=== PATIENT | female | born 1990 | race Caucasian/White ===

== ENCOUNTER 2018-06-13 15:45 | Emergency (ER) | payer BC ==
[~2018-06-13] VITALS: Ht 154.9 cm; Wt 90.7 kg
[~2018-06-13 15:45] MED LIST: AMOXICILLIN875 MG PO; ANAPROX DS550 MG PO; BACTRIM DS TAB1 EACH PO; CEPHALEXIN 500500 M3 PO; CILOXAN5 ML OP; CIPROFLOXACIN500 M1 PO; DEPO-PROVERA; HYDROCODON-ACE1 EAC7 PO; IBUPROFEN 600600 M1 PO; IBUPROFEN 800800 M1 PO; LORTABELXR PO; MAXITROL EYE DRO5 ML OP; MIDOL220 MG PO; MUCINEX600 MG PO; NAPROXEN 500MG500 MG PO; NOHOMEMEDICATIONS; PHENERGAN 25 MG25 M1 PO; PRENATAL PO; TRAMADOL 50 MG50 MG PO; ZOFRAN ODT4 M1 PO
[2018-06-13 15:51] VITALS: BP 122/79
[2018-06-13] MEDS ORDERED: BACTRIM DS TAB1 EACH PO (16:25)
[2018-06-13] MEDS ORDERED: NORCO 5-325 TA1 EAC1 PO (16:25)
== END 2018-06-13 16:35 | disposition home or self-care (01) ==
LOC: M.ERS 15:45
DX: N76.4 Abscess of vulva (principal); Z87.442 Personal history of urinary calculi; Z98.890 Other specified postprocedural states; Z86.14 Personal history of Methicillin resistant Staphylococcus aureus infection

== ENCOUNTER 2018-07-09 20:05 | Emergency (ER) | payer BC ==
[~2018-07-09] VITALS: Ht 154.9 cm; Wt 86.6 kg
[~2018-07-09 20:05] MED LIST changes: +NORCO 5-325 TA1 EAC1 PO
[2018-07-09 20:41] LABS: URINE BLOOD NEGATIVE (Negative); URINE CLARITY CLEAR; URINE COLOR YELLOW; URINE GLUCOSE-RANDOM NEGATIVE (Negative); URINE KETONES 1+ (Negative); URINE LEUKOCYTES-REFLEX TRACE (Negative); URINE NITRITE-REFLEX NEGATIVE (Negative); URINE PROTEIN TRACE (Negative); URINE SPECIFIC GRAVITY >= 1.030 (1.005-1.030)
[2018-07-09 20:47] LABS: ICTOTEST (BILI CONFIRMATORY) Positive (Negative); URINE BILIRUBIN 2+ (Negative)
[2018-07-09 20:59] LABS: ABSOLUTE LYMPHOCYTES 2.6 thou/uL (0.8-5.3); ABSOLUTE MONOCYTES 0.2 thou/uL (0.0-1.2); ABSOLUTE NEUTROPHILS 4.2 thou/uL (1.6-8.1); BASOPHILS 0.6 %; EOSINOPHILS 0.4 %; HEMATOCRIT 36.9 % (37.0-47.0); HEMOGLOBIN 11.9 gm/dL (12.0-15.0); LYMPHOCYTES 36.6 %; MCH 24.5 pg (26.0-34.0); MCHC 32.3 g/dL (28.0-37.0); MCV 75.8 fL (80.0-100.0); MONOCYTES 2.4 %; MPV 7.6 fl. (7.2-11.1); NUCLEATED RBCS 0 /100WBC; PLATELET COUNT* 241 thou/uL (150-400); RBC 4.87 mil/uL (4.20-5.00); RDW-CV 15.6 % (10.5-14.5)
[2018-07-09 21:00] LABS: MUCUS 4-6 Moderate strn/LPF (None Seen); SQUAMOUS >10 Many /LPF (0-3)
[2018-07-09 21:01] LABS: AMORPHOUS URATES Moderate /LPF (None Seen); URINE WBC-REFLEX 0-5 Rare /HPF (0-5)
[2018-07-09 21:02] LABS: BACTERIA-REFLEX 1-9 Few /HPF (None Seen); HYALINE CASTS 0-3 Few /LPF (None Seen); URINE RBC None Seen /HPF (0-2)
[2018-07-09 21:15] LABS: CALCIUM 8.7 mg/dL (8.5-10.1); CREATININE 0.9 mg/dL (0.6-1.3); POTASSIUM 3.3 mmol/L (3.5-5.1)
[2018-07-09 21:19] LABS: ALBUMIN 3.7 g/dL (3.4-5.0); TOTAL BILIRUBIN 0.5 mg/dL (<0.1-1.0); TOTAL PROTEIN 7.6 g/dL (6.4-8.2)
[2018-07-09] MEDS ORDERED: ONDANSETRON HCL4 M2 PO (21:24)
[2018-07-09 21:50] VITALS: BP 119/63
== END 2018-07-09 21:54 | disposition home or self-care (01) ==
LOC: M.ERS 20:05
PROVIDERS: Physician Assistant
DX: R11.2 Nausea with vomiting, unspecified (principal); Z86.14 Personal history of Methicillin resistant Staphylococcus aureus infection; R10.13 Epigastric pain; Z98.890 Other specified postprocedural states

== ENCOUNTER 2020-01-13 21:21 | Emergency (ER) | payer BC ==
[~2020-01-13] VITALS: Ht 154.9 cm; Wt 70.3 kg
[~2020-01-13 21:21] MED LIST changes: +ONDANSETRON HCL4 M2 PO
[2020-01-13 22:41] LABS: URINE BILIRUBIN NEGATIVE (Negative); URINE BLOOD 3+ (Negative); URINE CLARITY CLEAR; URINE COLOR YELLOW; URINE GLUCOSE-RANDOM NEGATIVE (Negative); URINE KETONES NEGATIVE (Negative); URINE LEUKOCYTES-REFLEX NEGATIVE (Negative); URINE NITRITE-REFLEX NEGATIVE (Negative); URINE PROTEIN NEGATIVE (Negative); URINE SPECIFIC GRAVITY >= 1.030 (1.005-1.030); URINE UROBILINOGEN 0.2 E.U./dl (0.2-1.0)
[2020-01-13 22:50] LABS: MUCUS >6 Heavy strn/LPF (None Seen); SQUAMOUS >10 Many /LPF (0-3)
[2020-01-13 22:51] LABS: BACTERIA-REFLEX 1-9 Few /HPF (None Seen); CASTS None Seen /LPF (None Seen); CRYSTALS None Seen /LPF (None Seen); URINE RBC 3-10 Few /HPF (0-2); URINE WBC-REFLEX 0-5 Rare /HPF (0-5)
[2020-01-13 23:54] VITALS: BP 148/99
== END 2020-01-13 23:54 | disposition left against medical advice (07) ==
LOC: M.ERS 21:21
PROVIDERS: Nurse Practitioner Family
DX: Z53.21 Procedure and treatment not carried out due to patient leaving prior to being seen by health care provider (principal)